=== PATIENT | male | born 1975 | race Caucasian/White ===

== ENCOUNTER → 2021-09-08 | Outpatient (CLI) | payer BC ==
--- NOTE | 2021-09-08 08:46 | REP ---
INDICATION: GERD RUQ ABD PAIN. COMPARISON: CT 11/14/2009 TECHNIQUE: Standard right upper quadrant sonography. FINDINGS: There are geographic hyperechoic area is in much of the liver suggesting fatty infiltration. No discrete hepatic mass, intrahepatic biliary dilatation nor adjacent ascites. The gallbladder is adequately distended without mass, stone, wall thickening or pericholecystic fluid. Common duct is 2.5 mm without a filling defect. Visualized pancreas was unremarkable. Right kidney is 11.9 x 5.3 x 5 cm. The right kidney 11.9 x 5.3 x 5 cm and shows a cyst 2 x 1.7 x 1.3 cm peripherally in the interpolar region. No generalized ascites or other abnormality. IMPRESSION: 1. Geographic pattern of the fatty infiltration in much of the liver with no discrete mass, intrahepatic biliary dilatation nor adjacent ascites. 2. Gallbladder without stones, wall thickening or sludge. 3. Pancreas and right kidney without acute finding. Interpolar cyst in the right kidney similar to the previous CT. No other findings. <Electronically signed by Jhon Ramirez > 09/08/21 0843
== END ==
LOC: M RAD 07:00
PROVIDERS: ATTEND Internal Medicine Gastroenterology
DX: K21.9 Gastro-esophageal reflux disease without esophagitis (principal); R10.9 Unspecified abdominal pain; R11.0 Nausea; K76.0 Fatty (change of) liver, not elsewhere classified; N28.1 Cyst of kidney, acquired

== ENCOUNTER → 2021-10-13 | Outpatient (CLI) | payer BC ==
[~2021-10-13] MED LIST: ESOM20CA25
== END ==
LOC: M LABSMTC 10:51
PROVIDERS: ATTEND Anesthesiology
DX: Z01.812 Encounter for preprocedural laboratory examination (principal); Z20.822 Contact with and (suspected) exposure to COVID-19

== ENCOUNTER 2021-10-17 09:22 | Day surgery (SDC) | payer BC ==
[~2021-10-17] VITALS: Ht 185.4 cm; Wt 89.4 kg
[~2021-10-17 09:22] MED LIST changes: +NS 1,000 ML IV ONE
--- OUTSIDE RECORDS SUMMARY | 2021-10-17 09:27 | CCD | Clinical Summary ---
Author Author Back& Organization Formerly [facility] Address [address] [place] [address] Phone Care Team Providers Care Cycle Director Name Role Phone Aura Armendariz Unavailable [phone] Jhon Viramontes DO PP [phone] Manuelito Faulkner MD Unavailable [phone] Reason for Referral Date Encounter Description Provider Reason for Referral 08/14/21 Sara Christine NP R equest Consultation By Specialist Reason for Visit and Chief Complaint visit for: Telehealth Encounter for Acute Care. Telehealth is being utilized d ue to the COVID19 pandemic - The Chief Complaint is: PATIENT SCREENED FOR 10 UT NUTES BY NURSINGpt states his nausea has impronved some, he recieved info for gi appt, cheryl valderrama Problems Includes: Problems addressed during this encounter and other active Problems Current Visit Onset Date - Time Resolved Date - Time Provider C ondition Status Allergic Rhinitis 01/08/2016 - 12:00AM Rosemary Hinkle P Active Organic Sleep Apnea Obstructive 01/08/2016 - 12:00AM Jamar Talbert NP Active Note: CPAP Gerd 03/07/2015 - 12:00AM Rosemary Talbert NP Act maeve Irritable Bowel Syndrome 03/26/2010 - 12:00AM Jazmine TINSLEY Active Note: Stable - diet controll ed Past Visits Onset Date - Time Resolved Date - Time Provider Co ndition Status Elevated Liver Enzymes 12/14/2019 - 12:00AM Jhon Viramontes DO Active Note: hep B + 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 Anaphylaxis Due To Contact with Allergens 12/14/2019 - 12:00AM Jhon Viramontes DO Active Hyperlipidemia 12/13/2018 - 12:00AM 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 trial gavescon for prn use and prilosec otc for prevention. Plan of Treatment Pending Tests Order Diagnosis Results Due Ordering Provi mague Orders - Other - Work Note Work Note Acute sinusitis, unspecifie d 08/14/21 Sara Christine NP Future Appointments Date Time Location Provider [facility] 02/19/2022 7:30AM [facility] Jhon mckeon DO - Return to the clinic if condition worsens or new symptoms arise Assessments Includes: Assessments from this encounter - Acute sinusitis - Esophageal reflux - Upper respiratory infection Instructions Includes: Instructions from this encounter Education and Decision Aids were provide d during visit for: Patient and family appeared to understan d therapeutic regimen for Medications and Plan of Care (or Caregiver); Assessed using Teach-back Method Medical Equipment - Implanted Devices Includes: Current DevicesNo Medical Equipment Recorded Medications Includes: Medications discussed during this encounter and other current Medicati ons New / Renewed during this visit Sara Christine NP on 08/14/2021 Amoxicillin 500 MG Oral Capsule Provider : Sara Christine NP 10 day supply: 40 capsule, 0 refills Diagnosis: 2 twice a day Pharmacy: [id number] [phone] [facility], [phone] - Current Medications (continue as prescribed) Amoxicillin-Pot Clavulanate 875-125 MG Oral Tablet 1 - 08/25/2021 Provider: Sara Christine NP Diagnosis: twice a day Esomeprazole Magnesium 20 MG Oral Capsule Delayed Rele ase 08/11/2021 - 11/09/2021 Provider: Sara Christine NP Diagnosis: once a day Benadryl Allergy 25 MG Oral Capsule 08/11/2021 Prov ider: Diagnosis: Fluticasone Propionate 50 MCG/ACT Nasal Suspension Provider: Jhon Viramontes DO Diagnosis: Acute recurrent sinu sitis, unspecified -2 SPRAYS/NOSTRIL PER DAY EpiPen 2-Jorge 0.3 MG/0.3ML Injection Solution Auto-injector 0 02/14/2021 Provider: Jhon Viramontes DO Diagnosis: Anaphylactic shock, unspecified, initial encounter prn systemic allergic reactions Levocetirizine Dihydrochloride 5 MG Oral Tablet 12/20/2020 - 12/15/2021 Provider: Jhon Viramontes DO Diagnosis: Allergic rhinitis, u nspecified once a day- as needed allergy Montelukast Sodium 10 MG Oral Tablet 12/20/2020 - 12/15/2021 Provider: Jhon Viramontes DO Diagnosis: Allergic rhinitis, u nspecified once a day- as needed allergies Medications Administered Includes: Administered Medications from this encounterNo Administered Medications Recorded Vital Signs Includes: Vital Signs from this encounter Vital Name 08/14/2021 04:54P Temp-Temporal 97.2 Height (in) 73 Weight (lb) 215 Body Mass Index (kg/m2) 28.4 Body Surface Area (m2) 2.22 Pain Level 0 Flow Rate (l/min) (None (Room Air)) FiO2 (%) 21 Results Includes: Results discussed during this encounterNo Results Recorded For Specified Dates History of Present Illness Includes: History of Present Illness from this encounter Thanh Blancas is a 46 year old male. - Allergy list reviewed - Medication reconciliation performed - - Primary physician: Jhon Viramontes DO - - No request for consultation by special ist - No previous emergency room visit PATIENT PRESENTS FOR VIRTUAL VISIT DURING COVID-19 PANDEMIC DUE TO AN ACUTE ISSUE. HERE FOR RECHECK ON URI/SINUS SX. HIS COVID TEST IS NEG. HE MAY RETURN TO WORK WHEN HE FEELS LIKE IT. WOULD LIKE TO GO BACK RIGHT AWAY HIS SINUS SX ARE PERSISTING, SO I AM GOING TO PRESCRIBE ABX PREVIOUSLY DISCUSSED. HE IS ACTUALLY C/O THICK YELLOW NASAL SECRETIONS. NO FEVER OR CHILLS. NO COUGH. GI SX HAVE IMPROVED SOME. NO LOOSE STOOLS. HE WILL KEEP APPT. WITH GI WHEN SCHEDULED WE DISCUSSED. ADVISED PROBIOTICS WHILE ON ABX AND YOGURT. HE WILL PROSECUTING ATTORNEY PREVIOUSLY PRESCRIBED PPI Social History Description Last Updated Smoking status 08/14/2021 : Never smoker 08/14/2021 Alcohol use 02/14/2021 Denies alcohol consumption 05/2021 Educational level masters degree 08/14/2021 No secondhand cigarette smoke exposure 08/14/2021 Not using drugs 02/14/2021 08/14/2021 Procedures and Surgical History Includes: Procedures from this encounter Procedures Code Diagnosis Performing Provider Service Location Service Date duration of the encounter 30 min Total time spent including lab review, chart review, discussion with patient, discussion with desk clerk, coordination of care, and documentation was 30 minutes counseling on treatment options includi ng Side Effects as well as Risks, Benefits and Alternatives Medical History Includes: Medical History addressed during this encounter Description Last Updated Allergic rhinitis 08/14/2021 GERD 08/14/2021 History of osteoarthritis 08/14/2021 Irritable bowel syndrome 08/14/2021 Organic obstructive sleep apnea 08/14/2021 Family History Includes: Family History addressed during this encounter Description Last Updated blood clots in women on moms side 08/14/2021 Family history of cancer mom had liver cancer. maternal grandfather with testicular cancer 08/14/2021 Family history of diabetes mellitus maternal grandmot her, adult onset 08/14/2021 Family history of drug use brother 08/14/2021 Family history of hypertension brother 08/14/2021 Maternal history of not using drugs 08/14/2021 No family history of depression 08/14/2021 No maternal history of depression 08/14/2021 No paternal history of depression 08/14/2021 Paternal history of not using drugs 08/14/2021 Review of Systems Includes: Review of Systems from this encounterNo Review of Systems Recorded Mental Status Includes: Mental Status from this encounter Description Cognitive functioning was normal Oriented to time, place, and person Thought processes were not impaired The thought content revealed no impairme nt Functional Status Includes: Functional Status from this encounterNo Functional Status Recorded Physical Exam Includes: Physical Exam from this encounter General Status: -no assessment of cough -in no acute distress -well developed -well nourished Eyes: -the extraocular movements were normal Ears, Nose, Throat: -no nasal discharge seen Psychiatric Exam: -the grooming was normal -the affect was normal -the mood was euthymic -thought processes were not impaired -the thought content revealed no impairment Neurological System: -cognitive functioning was normal -gait and stance were normal -oriented to time, place, and person Skin: -the skin general appearance was normal Musculoskeletal System: -overall findings were normal Vital Signs: -current vital signs reviewed Lungs: -unlabored respiration Immunizations Includes: Immunizations addressed during this encounterNo Immunizations Recorded Allergies Includes: Active Allergies Substance Type Reaction Onset Date - Time Resolved Date - Ti me Status [place] Se[employer] Allergy swelling in tongue and mouth 03/26/2010 - 12:00AM Active Ibuprofen Allergy numbness 08/17/2008 - 12:00AM Acti ve Bananas Allergy makes mouth itchy 03/26/2010 - 12:00AM Active Encounters Encounter Provider Location Date Check-In Time Check-Out Time D iagnosis Acute Telehealth FaceTime Sara Edwards Josafat Christine 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 [facility] 08/14/2021 10:00AM 6:53PM Sinusitis Acute, Eso phageal Reflux, Upper Respiratory Infection Insurance Includes: Active Insurance Policies Plan Name Member ID Group # Subscriber Relationship Effective Da hiral 1 - [employer] [id number] Thanh Blancas Self 11/08/2015 - Unknown Advance Directives Includes: Current Advance Directives Directive Pat Aware Third Alliance Party Effective Date Reviewed Status RHIO Yes 09/27/2012 Current and Ve rified Note: 09/23/12 Ebola Screening Performed Yes 12/14/2019 Current and Verified Note: Within the last month, have you traveled outside of the [place]? - NO packet given Pt Bill of Rights, Priv Prac, Ad Dir Yes 02/14/2021 Current and Verified Note: Pt declined AD packet Health Concerns Includes: Health Concerns addressed during this encounterNo Active Health Concerns Recorded Goals Includes: Goals addressed during this encounterNo Active Goals Recorded Interventions Includes: Interventions addressed during this encounterNo Interventions Recorded Evaluations & Outcomes Includes: Evaluations & Outcomes addressed during this encounterNo Outcomes Recorded
--- OUTSIDE RECORDS SUMMARY | 2021-10-17 09:27 | CCD | Continuity of Care Document ---
Author Author Thanh BUSCH M.D. Organization Unknown Address [address] [place] [address] Phone [phone] Care Team Providers Care Registered Respiratory Technician Name Role Phone DayChristineSara zavala FELIPE AUTM Jhon Viramontes D.O. AUTM Problems Active Problems Provider Date Gastroesophageal reflux disease Chirag Busch M.D. Ons et: 09/02/2021 Social History Type Date Description Comments Sex Unknown ETOH Use Denies alcohol use Tobacco Use Start: Unknown Patient has never smoked Allergies and adverse reactions Active Allergies Criticality Reaction | Severity Comments Date Ibuprofen Unable to assess criticality 09/02/2021 [place] [employer] Unable to assess criticality 09/02/2021 Animals Unable to assess criticality 09/02/2021 Medications Active Medications SIG Qnty Indications Ordering Provide r Date [place] [id number] Tablets as directed 1box Chirag Busch M.D. 09/02/2021 Esomeprazole Magnesium 20mg Capsul es DR Take One Capsule By Mouth Every Day Unknown Levocetirizine Dihydrochloride 5mg Tablets Take One Tablet By Mouth Every Day as Needed For Allergy Unknown Montelukast Sodium 10mg Tablets Take One Tablet By Mouth Every Day as Needed For Allergies Unknown Immunizations Description No Information Available Vital Signs Date Vital Result Comment 09/02/2021 10:43am Height 73 inches 6'1" Weight 214.00 lb BP Systolic 118 mmHg BP Diastolic 75 mmHg Heart Rate 56 /min BMI (Body Mass Index) 28.2 kg/m2 Weight 97.070 kg Body Temperature 97.5 F Results Description No Information Available Procedures Date Code Description Status 09/02/2021 42923 Office/Outpatient New Moderate M DM 45-59 Minutes Completed Medical Devices Description No Information Available Encounters Type Date Location Provider Dx Diagnosis Office Visit 09/02/2021 10:30a Main Office Chirag Busch M.D. K 21.9 Gastro-esophageal reflux disease without esophagitis K58.9 Irritable bowel syndrome wit hout diarrhea R10.9 Unspecified abdominal pain Assessments Date Code Description Provider 09/02/2021 K21.9 Gastro-esophageal reflux disease without esophagitis Chirag Busch M.D. 09/02/2021 K58.9 Irritable bowel syndrome Chirag Busch M.D. 09/02/2021 R10.9 Abdominal pain Chirag bey M.D. Plan of Treatment Future Appointment(s):* 10/01/2021 8:00 am - [facility] at Main Office * 10/17/2021 12:15 pm - Chirag Busch M.D. at Main Office 09/02/2021 - Chirag Busch M.D.* K21.9 Gastro-esophageal reflux disease without esophagitis* New Xrays:* Ultrasound of the Gallbladder, Ordered: 09/02/21 * Comments:* 46 yo wm who presents for a colonoscopy/egd due to a h/o diarrhea/abdominal pain/heartburn/chronic nausea/fatty food intolernce. Positive c/o abdominal pain, positive weight loss, change in bowel habits, or rectal bleeding. No family h/o colon cancer. No h/o chest pain, or sob. Plan:1. Colonoscopy + egd2. Gallbladder US.3. Maintain meds. * K58.9 Irritable bowel syndrome* Comments:* As above. * R10.9 Abdominal pain* New Xrays:* Ultrasound of the Gallbladder, Ordered: 09/02/21 * Comments:* Above. Functional Status Description No Information Available Mental Status Description No Information Available Referrals Description No Information Available
--- OUTSIDE RECORDS SUMMARY | 2021-10-17 09:27 | CCD | Clinical Summary ---
Author Author Dialogic Organization [facility] Address [address] [place] [address] Phone Care Team Providers Care Plastic Installer Name Role Phone Aura Armendariz Unavailable [phone] Jhon Viramontes DO PP [phone] Manuelito Faulkner MD Unavailable [phone] Reason for Referral Date Encounter Description Provider Reason for Referral 08/11/21 Sara Christine NP R equest Consultation By Specialist Reason for Visit and Chief Complaint The Chief Complaint is: Pt ambulated to room 5. Pt presents with Nausea, conges tion and runny nose. Pt c/o discomftort in upper abdominal area with consistant acid reflux naf occasional nausea. 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 Active Allergic Rhinitis 01/08/2016 - 12:00AM Rosemary Hinkle P Active Organic Sleep Apnea Obstructive 01/08/2016 - 12:00AM Jamar Talbert NP Active Note: CPAP Eczema Dyshidrotic 03/07/2015 - 12:00AM Jazmine springer PA Active Gerd 03/07/2015 - 12:00AM Rosemary L Hipple DIRECTOR CAREER Act maeve Prehypertension 09/20/2014 - 12:00AM Jazmine TINSLEY Active Ct Scan of Abdomen 03/26/2010 - 12:00AM Neela gutierrez MD Active Note: wnl 03/17 x small cyst kidney Irritable Bowel Syndrome 03/26/2010 - 12:00AM Jazmine TINSLEY Active Note: Stable - diet controll ed Gastritis Acute Erosive 03/12/2010 - 12:00AM Neela Persaud MD Active Note: Improved - history of, on endoscopy 12/18. trial gavescon for prn use and prilosec otc for prevention. Plan of Treatment Pending Tests Order Diagnosis Results Due Ordering Provi mague Lab COVID 19 08/18/21 Sara Christine NP Referrals To Diagnosis GI Disease of esophagus , unspecified Note: Please schedule patient with provi mague [place] PLEASE. Future Appointments Date Time Location Provider Acute Telehealth FaceTime 08/14/2021 10:00AM [facility] Sara Christine DIRECTOR CAREER [facility] 02/19/2022 7:30AM [facility] Jhon mckeon DO - Instructions for patient YOU ARE OFFICIALLY ON QUARENTINE UNTIL YOUR COVID-19 TEST RESULTS ARE BACK. IF YOUR SYMPTOMS BECOME SEVERE AT ANY POINT, YOU SHOULD SEEK EMERGENT CARE AND/OR CALL 911 ADVISED. - Return to the clinic if condition wors ens or new symptoms arise Assessments Includes: Assessments from this encounter - Esophageal reflux - Viral upper respiratory infection Instructions Includes: Instructions from this encounter Instructions to patient Instructions for patient ~ ~YOU ARE OF FICIALLY ON QUARENTINE UNTIL YOUR COVID- 19 TEST RESULTS ARE BACK. ~ ~IF YOUR SYMPTOMS BECOME SEVERE AT ANY POINT, YOU SHOULD SEEK EMERGENT CARE AND/OR CALL 911 ADVISED. ~ Education and Decision Aids were provide d during visit for: Patient appeared to understand therapeut ic regimen for Medications and Plan of Care; Assessed using Teach-back Method Medical Equipment - Implanted Devices Includes: Current DevicesNo Medical Equipment Recorded Medications Includes: Medications discussed during this encounter and other current Medicati ons Discontinued / Stopped on this date Juani Viramontes DO on 02/14/2021 Betamethasone Valerate 0.1% External Ointment Provider: Jhon Viramontes DO Diagnosis: Dyshidrosis [pomphol yx] New / Renewed during this visit Sara dawn Josafat Christine DIRECTOR CAREER on 08/11/2021 Esomeprazole Magnesium 20 MG Oral Capsule Delayed Release Provider: Sabiha Josafat Christine NP 30 day supply: 30 capsule, 2 refills Diagnosis: once a day Pharmacy: [id number] - [id number] [facility], [id number] - Current Medications (continue as prescribed) Benadryl Allergy 25 MG Oral Capsule 08/11/2021 Prov ider: Diagnosis: EpiPen 2-Jorge 0.3 MG/0.3ML Injection Solution Auto-injector 0 02/14/2021 Provider: Jhon Viramontes DO Diagnosis: Anaphylactic shock, unspecified, initial encounter prn systemic allergic reactions Fluticasone Propionate 50 MCG/ACT Nasal Suspension Provider: Jhon Viramontes DO Diagnosis: Acute recurrent sinu sitis, unspecified -2 SPRAYS/NOSTRIL PER DAY Montelukast Sodium 10 MG Oral Tablet 12/20/2020 - 12/15/2021 Provider: Jhon Viramontes DO Diagnosis: Allergic rhinitis, u nspecified once a day- as needed allergies Levocetirizine Dihydrochloride 5 MG Oral Tablet 12/20/2020 - 12/15/2021 Provider: Jhon Viramontes DO Diagnosis: Allergic rhinitis, u nspecified once a day- as needed allergy Medications Administered Includes: Administered Medications from this encounterNo Administered Medications Recorded Vital Signs Includes: Vital Signs from this encounter Vital Name 08/11/2021 03:59P Blood Pressure Sitting L 122/82 BP Cuff Size Regular Pulse Rate-Sitting (bpm) 94 Respiration Rate (breaths/min) 18 Temp-Temporal 96.5 Weight (lb) 218.4 Pain Level 2 Oxygen Saturation (%) 96 Flow Rate (l/min) (None (Room Air)) FiO2 [...] request for consultation by special ist - Compliance with treatment - No previous emergency room visit Here today with 2 separate issues. 1 is chronic and one is acute. He has been having GI symptoms for quite a long time. They recently got worse after he ate sunflower seed oil accidentally. He states that he is allergic to that. His bowel movements were abnormal for him after he ingested that about 3 weeks ago. They are now starting to normalize. No black or bloody stools. He is taking Pepto-Bismol for indigestion. He has also tried many gojx-njf-shzuble acid and indigestion remedies to include Tums. He tried Prilosec OTC also. He thinks that he may have an ulcer. I am going to refer to GI as discussed. His acute issue is that of nasal congestion and a runny nose. He does have a history of allergies. He is doing sinus rinses and taking all of his medications as prescribed. He has not been exposed to COVID-19 that he is aware of. 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 I really think we need to test him for COVID-19 just to be sure. He is agreeable to that treatment plan. He is aware that he will remain on quarantine until test results come back HAS CONCERN FOR COVID-19 INFECTION. Chief Complaint: nausea stuffy and runny nose. AC1 appt made for 08/11/21 at 3:30 with TREMAINE White 1 QUESTIONSNew Cough or change in Chronic cough in the past 2 weeks: NoNew Shortness of Breath or change in chronic Shortness of breath in the past 2 weeks: NoFever or Chills: NoLoss of smell or taste: NoDiarrhea: NoNasal Discharge or Stuffiness: YES, pt says it is allergies Sore throat: NoNausea or Vomiting: Yes, nauseaHeadache, Fatigue or Muscle Aches: NoPositive/Suspected COVID19 Contact: NoHave you been COVID tested within the last 2 weeks: NoHave you traveled outside of the country in the past 14 days: NoIf yes, where have you traveled:Contact with someone who's been outside the state or the country in the past 14 days: NoCurrently under mandatory or precautionary quarantine by a provider or the [place]: No Social History Description Last Updated No secondhand cigarette smoke exposure 08/11/2021 Smoking status 08/11/2021 : Never smoker 08/11/2021 Procedures and Surgical History Includes: Procedures from this encounter Procedures Code Diagnosis Performing Provider Service Location Service Date Transition in care medication list update counseling and coordination of care was more than 50% of encounter time 40 counseling on treatment options includi ng Side Effects as well as Risks, Benefits and Alternatives Summary provided electronically in CCDA format & reasonable certainty of receipt Medical History Includes: Medical History addressed during this encounterNo Medical History Recorded Family History Includes: Family History addressed during this encounterNo Family History Recorded Review of Systems Includes: Review of Systems from this encounterNo Review of Systems Recorded Mental Status Includes: Mental Status from this encounter Description Oriented to time, place, and person Functional Status Includes: Functional Status from this encounterNo Functional Status Recorded Physical Exam Includes: Physical Exam from this encounter Eyes: -the extraocular movements were normal Ears, Nose, Throat: -external auditory meatus normal -tympanic membrane was normal -no nasal discharge seen -no sinus tenderness -the oropharynx was normal Lungs: -normal breath sounds/voice sounds -no wheezing was heard -no rhonchi were heard -no rales/crackles were heard Cardiovascular System: -no murmurs were heard -heart rate and rhythm normal -no bradycardia present -no tachycardia present Abdomen: -the bowel sounds were normal -abdominal non-tender -no mass was palpated in the abdomen -the liver was not enlarged -the spleen was not enlarged Neurological System: -gait and stance were normal -oriented to time, place, and person Skin: -the skin general appearance was normal General Status: -in no acute distress -well developed -well nourished Musculoskeletal System: -overall findings were normal Vital Signs: -current vital signs reviewed Immunizations Includes: Immunizations addressed during this encounterNo Immunizations Recorded Allergies Includes: Active Allergies Substance Type Reaction Onset Date - Time Resolved Date - Ti me Status Barron Seeds Allergy swelling in tongue and mouth 03/26/2010 - 12:00AM Active Ibuprofen Allergy numbness 08/17/2008 - 12:00AM Acti ve Bananas Allergy makes mouth itchy 03/26/2010 - 12:00AM Active Encounters Encounter Provider Location Date Check-In Time Check-Out Time D iagnosis Acute L1 Sabiha Josafat Christine NP [facility] 08/11/2021 3:3 0PM 4:36PM Upper Respiratory Infection Viral, Esophageal Reflux Insurance Includes: Active Insurance Policies Plan Name Member ID Group # Subscriber Relationship Effective Da hiral 1 - [facility] [id number] Thanh Blancas Self 11/08/2015 - Unknown Advance Directives Includes: Current Advance Directives Directive Pat Aware Third Democrat Effective Date Reviewed Status RHIO Yes 09/27/2012 [...]
--- OUTSIDE RECORDS SUMMARY | 2021-10-17 09:27 | CCD | Clinical Summary ---
Author Author Genetic Finance Organization [facility] Address [address] [place] [address] Phone Care Team Providers Care Armor Reconnaissance Vehicle Driver Name Role Phone Aura Armendariz Unavailable [phone] Jhon Viramontes DO PP [phone] Manuelito Faulkner MD Unavailable [phone] Reason for Referral Date Encounter Description Provider Reason for Referral 10/06/21 Jhon Viramontes DO Request Consultation By Specialist Reason for Visit and Chief Complaint visit for:, visit for: Telehealth Encounter for Acute Care. Telehealth is being utilized due to the COVID19 pandemic - The Chief Complaint is: Patient is sche duled for telehealth appointment, has concerns about prostate symptoms. CKelleyL PN Problems Includes: Problems addressed during this encounter and other active Problems Current Visit Onset Date - Time Resolved Date - Time Provider C ondition Status Prostatic Hyperplasia 10/06/2021 - 12:00AM Jhon carmona DO Active Note: Unchanged Allergic Rhinitis 01/08/2016 - 12:00AM Rosemary Hinkle [...] Elevated Liver Enzymes 12/14/2019 - 12:00AM Jhon Viramnotes DO Active Note: hep B + C neg Anaphylaxis Due To Contact with Allergens 12/14/2019 - 12:00AM Jhon Viramontes DO Active Hyperlipidemia 12/13/2018 - 12:00AM Aura M Brushaber F WAFER CUTTER Active Vitamin Deficiency 12/13/2018 - 12:00AM Aura Javedab er ASSOCIATE PROFESSOR OF HISTORY Active Eczema Dyshidrotic 03/07/2015 - 12:00AM Jazmine springer PA Active Prehypertension 09/20/2014 - 12:00AM Jazmine TINSLEY Active Ct Scan of Abdomen 03/26/2010 - 12:00AM Neela gutierrez MD Active Note: wnl 03/17 x small cyst kidney Gastritis Acute Erosive 03/12/2010 - 12:00AM Neela Persaud MD Active Note: Improved - history of, on endoscopy 12/18. trial gavescon for prn use and prilosec otc for prevention. Plan of Treatment Future Appointments Date Time Location Provider [facility] 02/19/2022 7:30AM [facility] Jhon mckeon DO Future Tests Order Diagnosis Results Due Ordering Provid er [id number] - *Revisit Acute Acute Follow-up [facility] Benign prostatic hyperplasia without lower urinry tract symp 10/06/21 Jhon Viramontes DO - Instructions for patient - Return to the clinic if condition wors ens or new symptoms arise - Follow-up visit Assessments Includes: Assessments from this encounter - Benign prostatic hypertrophy See updated problem list for history/discussion/assessment and plan for today's problems. See also health tab and appropriate flow sheets. Instructions Includes: Instructions from this encounter Instructions to patient Instructions for patient Education and Decision Aids were provide d during visit for: Patient appeared to understand therapeut ic regimen Medical Equipment - Implanted Devices Includes: Current DevicesNo Medical Equipment Recorded Medications Includes: Medications discussed during this encounter and other current Medicati ons Discontinued / Stopped on this date Sara Christine WAFER CUTTER on 08/15/2021 Amoxicillin-Pot Clavulanate 875-125 MG Oral Tablet Provider: Sara Christine NP Diagnosis: Amoxicillin 500 MG Oral Capsule Provider : Sara Christine NP Diagnosis: New / Renewed during this visit Jhon Viramontes DO on 10/06/2021 Tamsulosin HCl 0.4 MG Oral Capsule Provi mague: Jhon Viramontes DO 30 day supply: 60 capsule, 5 refills Diagnosis: Be nign prostatic hyperplasia without lower urinry tract symp 1-2 tabs at bedtime Pharmacy: [id number] - [address] [facility], [id number] - Current Medications (continue as prescribed) Esomeprazole Magnesium 20 MG Oral Capsule Delayed [...] unspecified, initial encounter prn systemic allergic reactions Montelukast Sodium 10 MG Oral Tablet 12/20/2020 [...] Vital Signs Includes: Vital Signs from this encounterNo Vital Signs Recorded For Specified Dates Results Includes: Results discussed during this encounterNo Results Recorded For Specified Dates History of Present Illness Includes: History of Present Illness from this encounter Thanh Blancas is a 46 year old male. - Allergy list reviewed - Medication reconciliation performed - Medication list reviewed with patient and updated in EMR - - No request for consultation by special ist no previous emergency room visit Social History Description Last Updated Smoking status 10/06/2021 : Never smoker 10/06/2021 Alcohol use 02/14/2021 Denies alcohol consumption 05/2021 Educational level masters degree 08/14/2021 No secondhand cigarette smoke exposure 08/14/2021 Not using drugs 02/14/2021 08/14/2021 Procedures and Surgical History Includes: Procedures from this encounter Procedures Code Diagnosis Performing Provider Service Location Service Date continue current medication except where otherwise no judi Transition in care medication list update medical regimen review Clinical summary provided to patient Clinical summary provided to patient Summary provided electronically in CCDA format & reasonable certainty of receipt Medical History Includes: Medical History addressed during this encounter Description Last Updated Allergic rhinitis 08/14/2021 GERD 08/14/2021 History of osteoarthritis 08/14/2021 Irritable bowel syndrome 08/14/2021 Organic obstructive sleep apnea 08/14/2021 Patient screening 09/20/2014 Offered for Hepatitis C- refused 09/20/2014 Family History Includes: Family History addressed during [...] Mental Status Includes: Mental Status from this encounterNo Mental Status Recorded Functional Status Includes: Functional Status from this encounterNo Functional Status Recorded Physical Exam Includes: Physical Exam from this encounter Skin: -the skin color and pigmentation were normal -the skin general appearance was normal Ears, Nose, Throat: -no external nose deformities -no nasal discharge seen Head: -no evidence of a head injury -the head was normocephalic General Status: -in no acute distress -well developed Musculoskeletal System: -overall findings were normal unless noted otherwise Vital Signs: -current vital signs reviewed Physical Findings Free Text: - neurologic exam grossly intact Immunizations Includes: Immunizations addressed during this encounterNo Immunizations Recorded Allergies Includes: Active Allergies Substance Type Reaction Onset Date - Time Resolved Date - Ti me Status Drew Seeds Allergy swelling in tongue and mouth 03/26/2010 - 12:00AM Active Ibuprofen Allergy numbness 08/17/2008 - 12:00AM Acti ve Bananas Allergy makes mouth itchy 03/26/2010 - 12:00AM Active Encounters Encounter Provider Location Date Check-In Time Check-Out Time D iagnosis Acute Telehealth FaceTime Jhon Viramontes DO [facility] 3:50PM 11:59PM Benign Prostatic Hypertrophy Insurance Includes: Active Insurance Policies Plan Name Member ID Group # Subscriber Relationship Effective Da hiral 1 - [facility] [id number] Thanh Blancas Self 11/08/2015 - Unknown Advance [...] AD packet Health Concerns Includes: Health Concerns for current assessmentsNo Active Health Concerns Recorded Goals Includes: Active Goals for current assessmentsNo Active Goals Recorded Interventions Includes: Interventions for current assessmentsNo Interventions Recorded Evaluations & Outcomes Includes: Evaluations & Outcomes for current assessmentsNo Outcomes Recorded
[2021-10-17] MEDS ORDERED: propofoL 200 MG/20 ML VIAL As Ordered ONE ×3 (09:53→11:13)
[2021-10-17] MEDS ORDERED: LIDOCAINE 2% 100MG/5ML SDV (FOR ANES.) As Ordered ONE (09:54)
[2021-10-17] MEDS ORDERED: fentaNYL 100 MCG/2 ML INJECTION (J3010) As Ordered ONE (10:53)
--- NOTE | 2021-10-17 11:15 | ROOR ---
Patient Name: Thanh Blancas Procedure Date: 10/17/2021 10:41 AM Date of : 1975 Age: 46 Room: [facility] Gender: Male Note Status: Finalized Procedure: Upper Endoscopy + Biopsies Indications: Upper abdominal pain, Heartburn, Diarrhea, Nausea Providers: Chirag Busch MD Referring MD: Jhon Viramontes DO Requesting Provider: Medicines: Monitored Anesthesia Care Complications: No immediate complications. Procedure: Pre-Anesthesia Assessment: - The heart rate, respiratory rate, oxygen saturations, blood pressure, adequacy of pulmonary ventilation, and response to care were monitored throughout the procedure. The Endoscope was introduced through the mouth, and advanced to the second part of duodenum. The upper GI endoscopy was accomplished without difficulty. The patient tolerated the procedure well. Findings: The Z-line was variable and was found 40 cm from the incisors. Multiple biopsies were obtained with cold forceps for evaluation to rule out Worrell's Esophagus randomly at the gastroesophageal junction. A small hiatal hernia was present. Localized mild inflammation characterized by congestion (edema) and erythema was found on the greater curvature of the stomach. Biopsies were taken with a cold forceps for Helicobacter pylori testing. The exam of the duodenum was otherwise normal. Biopsies for histology were taken with a cold forceps in the first portion of the duodenum for evaluation of celiac disease. The exam was otherwise without abnormality. Impression: - Z-line variable, 40 cm from the incisors. - Small hiatal hernia. - Mucosal changes suspicious for gastritis. Biopsied. - The examination was otherwise normal. - Multiple biopsies were obtained at the gastroesophageal junction. - Biopsies were taken with a cold forceps for evaluation of celiac disease. - The examination was otherwise normal. Recommendation: - Patient has a contact number available for emergencies. The signs and symptoms of potential delayed complications were discussed with the patient. Return to normal activities tomorrow. Written discharge instructions were provided to the patient. - High fiber diet. - Discharge patient to home. - Follow an antireflux regimen. - Continue present medications. - Await pathology results. - Telephone GI clinic for pathology results in 1 week. - The findings and recommendations were discussed with the patient. Procedure Code(s): --- Professional --- 70813, Esophagogastroduodenoscopy, flexible, transoral; with biopsy, single or multiple Diagnosis Code(s): --- Professional --- K22.8, Other specified diseases of esophagus K44.9, Diaphragmatic hernia without obstruction or gangrene K31.89, Other diseases of stomach and duodenum R10.10, Upper abdominal pain, unspecified R12, Heartburn R19.7, Diarrhea, unspecified R11.0, Nausea CPT copyright 2019 [employer]. All rights reserved. The codes documented in this report are preliminary and upon logistics system engineer review may be revised to meet current compliance requirements. Chirag Busch MD Chirag Busch MD 10/17/2021 11:15:12 AM Electronically signed by Chirag Busch MD Number of Addenda: 0 Note Initiated On: 10/17/2021 10:41 AM Estimated Blood Loss: Estimated blood loss: none.
--- NOTE | 2021-10-17 11:35 | ROOR ---
Patient Name: Thanh Blancas Procedure Date: 10/17/2021 10:42 AM Date of : 1975 Age: 46 Room: [facility] Gender: Male Note Status: Finalized Procedure: Total Colonoscopy to Cecum + ileoscopy + Bx Polypectomy + Bx Indications: Lower abdominal pain, Change in bowel habits, Clinically significant diarrhea of unexplained origin Providers: Chirag Busch MD Referring MD: Jhon Viramontes DO Requesting Provider: Medicines: Monitored Anesthesia Care Complications: No immediate complications. Procedure: Pre-Anesthesia Assessment: - The heart rate, respiratory rate, oxygen saturations, blood pressure, adequacy of pulmonary ventilation, and response to care were monitored throughout the procedure. The Colonoscope was introduced through the anus and advanced to the terminal ileum, with identification of the appendiceal orifice and IC valve. The colonoscopy was performed without difficulty. The patient tolerated the procedure well. The quality of the bowel preparation was excellent. Findings: The perianal and digital rectal examinations were normal. Non-bleeding internal hemorrhoids were found during retroflexion. The hemorrhoids were small and Grade I (internal hemorrhoids that do not prolapse). Scattered small-mouthed diverticula were found in the recto-sigmoid colon, sigmoid colon and descending colon. The terminal ileum appeared normal. A diminutive polyp was found in the cecum. The polyp was sessile. The polyp was removed with a cold biopsy forceps. Resection and retrieval were complete. Biopsies for histology were taken with a cold forceps from the ascending colon, transverse colon, descending colon and rectosigmoid colon for evaluation of microscopic colitis. The exam was otherwise without abnormality on direct and retroflexion views. Impression: - Non-bleeding internal hemorrhoids. - Diverticulosis in the recto-sigmoid colon, in the sigmoid colon and in the descending colon. - The examined portion of the ileum was normal. - One diminutive polyp in the cecum, removed with a cold biopsy forceps. Resected and retrieved. - The examination was otherwise normal on direct and retroflexion views. - Biopsies were taken with a cold forceps from the ascending colon, transverse colon, descending colon and rectosigmoid colon for evaluation of microscopic colitis. - The exam was otherwise normal to the cecum. Recommendation: - Patient has a contact number available for emergencies. The signs and symptoms of potential delayed complications were discussed with the patient. Return to normal activities tomorrow. Written discharge instructions were provided to the patient. - High fiber diet. - Discharge patient to home. - Continue present medications. - Await pathology results. - Telephone GI clinic for pathology results in 1 week. - Return to referring physician. - Repeat colonoscopy in 10 years for screening purposes. - The findings and recommendations were discussed with the patient. Procedure Code(s): --- Professional --- 92754, Colonoscopy, flexible; with biopsy, single or multiple Diagnosis Code(s): --- Professional --- K64.0, First degree hemorrhoids K63.5, Polyp of colon R10.30, Lower abdominal pain, unspecified R19.4, Change in bowel habit R19.7, Diarrhea, unspecified K57.30, Diverticulosis of large intestine without perforation or abscess without bleeding CPT copyright 2019 [employer]. All rights reserved. The codes documented in this report are preliminary and upon beauty sales consultant review may be revised to meet current compliance requirements. Chirag Busch MD Chirag Busch MD 10/17/2021 11:35:07 AM Electronically signed by Chirag Busch MD Number of Addenda: 0 Note Initiated On: 10/17/2021 10:42 AM Estimated Blood Loss: Estimated blood loss: none.
[2021-10-17 12:00] VITALS: BP 129/79
== END 2021-10-17 12:20 | disposition home or self-care (01) ==
LOC: M OPP 09:22
PROVIDERS: ATTEND Internal Medicine Gastroenterology
DX: K63.5 Polyp of colon (principal); K57.30 Diverticulosis of large intestine without perforation or abscess without bleeding; K64.0 First degree hemorrhoids; R10.32 Left lower quadrant pain; R19.4 Change in bowel habit; K22.89 Other specified disease of esophagus; K44.9 Diaphragmatic hernia without obstruction or gangrene; K31.89 Other diseases of stomach and duodenum; R12 Heartburn; R11.0 Nausea; R19.7 Diarrhea, unspecified; Z79.899 Other long term (current) drug therapy; Z88.8 Allergy status to other drugs, medicaments and biological substances; Z91.018 Allergy to other foods
CPT/HCPCS: 43239; 45380; 88305; J3010

== ENCOUNTER → 2022-04-21 | Outpatient (REF) | payer BC ==
[~2022-04-21] MED LIST changes: -NS 1,000 ML IV ONE
== END ==
LOC: M SMT PRO 17:16
PROVIDERS: ATTEND Urology
DX: R97.20 Elevated prostate specific antigen [PSA] (principal)

== ENCOUNTER → 2023-02-10 | Outpatient (CLI) | payer BC ==
[~2023-02-10] MED LIST changes: +PROHANCE 279.3MG/ML 15ML VIAL As Ordered ONE; +PROHANCE 279.3MG/ML 5ML VIAL As Ordered ONE
== END ==
LOC: M RAD 11:00
PROVIDERS: ATTEND Physician Assistant
DX: R97.20 Elevated prostate specific antigen [PSA] (principal); K42.9 Umbilical hernia without obstruction or gangrene; N40.0 Benign prostatic hyperplasia without lower urinary tract symptoms
CPT/HCPCS: 72197; A9576

== ENCOUNTER → 2023-02-23 | Outpatient (REF) | payer BC ==
[~2023-02-23] MED LIST changes: -PROHANCE 279.3MG/ML 15ML VIAL As Ordered ONE; -PROHANCE 279.3MG/ML 5ML VIAL As Ordered ONE
== END ==
LOC: M SMT 13:07
PROVIDERS: ATTEND Urology
DX: R97.20 Elevated prostate specific antigen [PSA] (principal)